=== PATIENT | female | born 1965 | race Caucasian/White ===

== ENCOUNTER → 2017-07-26 | Outpatient (CLI) | payer BC ==
[~2017-07-26] MED LIST: ALBUTEROL17 GM INH; B COMPLEX1 TAB PO; ESTER C PO; MULTIPLE VITAMI1 T11 PO; OMEPRAZOLE20 M2 PO; PHENERGAN25 M1 PO; PRILOSEC40 MG PO; SYMBICORT INH; SYMBICORT80
--- NOTE | ~2017-07-26 | MY29 ---
[facility] A Service of [facility] RADIOLOGY TEXT RESULTS PATIENT: SAMIA GONZALEZ LOCATION: [facility] : 61 UNIT #: [id number] AGE: [address]: SANDRA GIBSON MD SEX: F ORDER DR: [id number] [facility] [address] [place], [place] [address] [id number] MR#: [id number] Acc #: [id number] NAME: SAIMA GONZALEZ : 1965 SEX: F STUDY DATE/TIME: 07/26/2017 12:13 UNIT: [facility] ROOM: STUDY DESCRIPTION: [facility] SCREENING W/ CAD BILAT Attending Physician: Sandra Gibson M.D. Referring Physician: Sandra Gibson M.D. Ordering Physician: Sandra Gibson M.D. Primary Care Physician: Sandra Gibson M.D. MEDICAL IMAGING REPORT This report is preliminary unless electronic signature is present EXAMINATION Bilateral digital screening mammogram with CAD. DATE 07/26/2017 HISTORY No personal or family history breast cancer or current complaints. COMPARISON Bilateral screening mammogram, 09/17/2009. TECHNIQUE CC and MLO views were obtained of each breast utilizing digital technique and reviewed with an FDA-approved CAD device. FINDINGS Scattered fibroglandular tissue is present bilaterally. No new or suspicious nodule is seen. No architectural distortion is evident. Benign calcifications are present bilaterally. IMPRESSION BIRADS 1. Negative screening mammogram. Routine screening mammogram is recommended in one year. Dictated by... Stella Garcia M.D. THIS IS AN ELECTRONICALLY VERIFIED REPORT Stella Garcia M.D. at 07/29/2017 8:34 AM CLARK/karlie [facility] A Service of [facility] RADIOLOGY TEXT RESULTS PATIENT: SAMIA GONZALEZ LOCATION: [facility] : 61 UNIT #: [id number] AGE: [address]: SANDRA GIBSON MD SEX: F ORDER DR: TD: 07/26/2017 22:57 JOB #: [id number] MEDICAL IMAGING REPORT Page 1 of 1 COPY
== END | disposition home or self-care (01) ==
LOC: CWCC 07-15 16:45
DX: Z12.31 Encounter for screening mammogram for malignant neoplasm of breast (principal)
CPT/HCPCS: G0202